=== PATIENT | female | born 1950 | race Caucasian/White ===

== ENCOUNTER 2021-08-08 10:03 | Emergency (ER) | payer MEDICARE ==
[~2021-08-08] VITALS: Ht 152.4 cm; Wt 72.7 kg
[2021-08-08 11:24] LABS: BASOPHILS # (AUTO) 0.1 X10'3 (0-0.2); BASOPHILS % (AUTO) 0.8 % (0-1); EOSINOPHILS % (AUTO) 0.3 % (0-6); HEMATOCRIT 44.5 % (35.0-45.0); HEMOGLOBIN 14.6 g/dl (12.0-16.0); LYMPHOCYTES # (AUTO) 2.3 X10'3 (1.1-4.8); LYMPHOCYTES % (AUTO) 20.5 % (21-51); MEAN CORPUSCULAR HEMOGLOBIN 29.9 PG (27.0-31.0); MEAN CORPUSCULAR HGB CONC 32.7 g/dL (33.0-36.5); MEAN CORPUSCULAR VOLUME 91.2 FL (78-98); MEAN PLATELET VOLUME 8.3 FL (7.4-10.4); MONOCYTES # (AUTO) 1.1 X10'3 (0-0.9); MONOCYTES % (AUTO) 9.6 % (2-12); NEUTROPHILS # (AUTO) 7.5 X10'3 (1.8-7.7); NEUTROPHILS % (AUTO) 68.8 % (42-75); PLATELET COUNT 349 X10'3 (140-440); RED BLOOD COUNT 4.88 X10'6 (4.20-5.60); RED CELL DISTRIBUTION WIDTH 14.5 % (11.5-14.5)
[2021-08-08 11:54] LABS: ALANINE AMINOTRANSFERASE 55 U/L (12-78); ALBUMIN 3.8 G/DL (3.4-5.0); ALBUMIN/GLOBULIN RATIO 0.8 (1.1-1.5); ALKALINE PHOSPHATASE 110 IU/L (46-116); ANION GAP 20 (8-16); ASPARTATE AMINO TRANSFERASE 97 U/L (10-37); BILIRUBIN,TOTAL 0.7 MG/DL (0.1-1.0); BLOOD UREA NITROGEN 14 MG/DL (7-18); BUN/CREATININE RATIO 15.6 (6.6-38.0); CALCIUM 9.4 MG/DL (8.5-10.1); CHLORIDE 106 MMOL/L (99-107); GLUCOSE 90 MG/DL (70-104); POTASSIUM 3.9 MMOL/L (3.5-5.1); SODIUM 142 MMOL/L (135-145); TOTAL CARBON DIOXIDE 15.7 MMOL/L (24-32); TOTAL PROTEIN 8.7 G/DL (6.4-8.2); eGFR 62 ML/MIN
[2021-08-08] MEDS ORDERED: amLODIPine 5mg tablet PO ONE (12:30)
[2021-08-08] MEDS ORDERED: losartan 50mg tablet PO SCH (12:30)
[2021-08-08] MEDS: losartan 25mg tablet PO SCH ×2 (12:53→12:54)
[2021-08-08] MEDS ORDERED: ringers solution, lactated 1000ml IV soln IV ONE ×2 (14:50→16:25)
[2021-08-08] MEDS ORDERED: AMOX-422 PO (15:28)
[2021-08-08] MEDS ORDERED: LORazepam 2 mg/ml vial IV ONE (17:25)
[2021-08-08] MEDS ORDERED: ondansetron/PF 4mg/2ml inj IV ONE (17:25)
[2021-08-08 18:05] LABS: CLARITY,URINE CLOUDY (Clear); COLOR,URINE YELLOW (Yellow); GLUCOSE, URINE NEGATIVE (Neg); KETONES,URINE 15 mg/dl (Neg); LEUKOCYTE ESTERASE ,URINE NEGATIVE (Neg); NITRITES, URINE NEGATIVE (Neg); OCCULT BLOOD,URINE NEGATIVE (Neg); PROTEIN,URINE NEGATIVE (Neg); UA COLLECTION TYPE NON-SPECIFIED; UROBILINOGEN,URINE 0.2 E.U/dL (0.2-1.0)
[2021-08-08 18:16] LABS: BACTERIA,URINE FEW /HPF (Neg); HYALINE CASTS 0-3 /LPF (NEGATIVE); MUCUS STRANDS FEW /LPF (Neg); RBC,URINE 0-2 /HPF (0-2); SQUAMOUS EPITHELIAL CELL,UR MANY /LPF (FEW); WBC,URINE 0-4 /HPF (0-4)
[2021-08-08 18:37] VITALS: BP 138/74
== END 2021-08-08 18:42 | disposition home or self-care (01) ==
LOC: ER 10:04
DX: K57.90 Diverticulosis of intestine, part unspecified, without perforation or abscess without bleeding (principal); K62.5 Hemorrhage of anus and rectum; R11.10 Vomiting, unspecified; I10 Essential (primary) hypertension; Z72.89 Other problems related to lifestyle; Z79.2 Long term (current) use of antibiotics
CPT/HCPCS: 36415; 74176; 80053; 81001; 83605; 84145; 85025; 93005; 96374; 96375; 99285; J2060; J2405; J7120

== ENCOUNTER 2024-10-12 13:05 | Outpatient (CLI) | payer MEDICARE | END 2024-10-12 23:59 | disposition home or self-care (01) | LOC: RAD 13:05 | PROVIDERS: ATTEND Family Medicine | DX: S42.211A Unspecified displaced fracture of surgical neck of right humerus, initial encounter for closed fracture (principal); M25.511 Pain in right shoulder; X58.XXXA Exposure to other specified factors, initial encounter; Y93.89 Activity, other specified; Y92.89 Other specified places as the place of occurrence of the external cause; Y99.8 Other external cause status | CPT/HCPCS: 73030 ==

== ENCOUNTER 2024-10-14 11:04 | Emergency (ER) | payer MEDICARE ==
[~2024-10-14] VITALS: Ht 152.4 cm; Wt 64.5 kg
[2024-10-14 11:15] VITALS: BP 137/75; PULSE 104; O2SAT 97
[2024-10-14] MEDS ORDERED: ONDA-243 PO (12:16)
[2024-10-14] MEDS ORDERED: HYDR-3965 PO (12:16)
[2024-10-14 12:38] VITALS: RESP 16
[2024-10-14] MEDS: ondansetron 4mg rapidly disintigrating tab PO ONE (12:38)
[2024-10-14] MEDS: HYDROcodone/acetaminophen 5mg/325mg tablet PO ONE (12:38)
[2024-10-14 12:42] VITALS: TEMP 97.6
== END 2024-10-14 12:44 | disposition home or self-care (01) ==
LOC: ER 11:04
DX: S42.252A Displaced fracture of greater tuberosity of left humerus, initial encounter for closed fracture (principal); I10 Essential (primary) hypertension; W19.XXXA Unspecified fall, initial encounter; Y93.89 Activity, other specified; Y92.89 Other specified places as the place of occurrence of the external cause; Y99.8 Other external cause status
CPT/HCPCS: 73030; 99283

== ENCOUNTER 2024-10-19 10:40 | Emergency (ER) | payer MEDICARE ==
[~2024-10-19] VITALS: Ht 152.4 cm; Wt 64.5 kg
[~2024-10-19 10:40] MED LIST: HYDR-3965 PO; ONDA-243 PO
[2024-10-19 11:24] VITALS: TEMP 97.2
[2024-10-19 13:36] VITALS: BP 132/73; PULSE 92; RESP 16; O2SAT 97
== END 2024-10-19 14:12 | disposition home or self-care (01) ==
LOC: ER 10:41
DX: S42.291D Other displaced fracture of upper end of right humerus, subsequent encounter for fracture with routine healing (principal); I10 Essential (primary) hypertension; F10.90 Alcohol use, unspecified, uncomplicated; Y90.9 Presence of alcohol in blood, level not specified; X58.XXXD Exposure to other specified factors, subsequent encounter
CPT/HCPCS: 99284

== ENCOUNTER 2025-01-08 05:25 | Observation (INO) | payer MEDICARE ==
[2025-01-01 14:25] LABS: BILIRUBIN,URINE NEGATIVE (Neg); CLARITY,URINE CLEAR (Clear); COLOR,URINE YELLOW (Yellow); GLUCOSE, URINE NEGATIVE (Neg); KETONES,URINE NEGATIVE (Neg); LEUKOCYTE ESTERASE ,URINE NEGATIVE (Neg); NITRITES, URINE NEGATIVE (Neg); OCCULT BLOOD,URINE NEGATIVE (Neg); PROTEIN,URINE NEGATIVE (Neg); UROBILINOGEN,URINE 0.2 E.U/dL (0.2-1.0)
[2025-01-01 14:28] LABS: BASOPHILS % (AUTO) 0.6 % (0-1); EOSINOPHILS # (AUTO) 0.1 X10'3 (0-0.9); EOSINOPHILS % (AUTO) 1.7 % (0-6); LYMPHOCYTES # (AUTO) 2.8 X10'3 (1.1-4.8); LYMPHOCYTES % (AUTO) 37.9 % (21-51); MEAN CORPUSCULAR HEMOGLOBIN 28.3 PG (27.0-31.0); MEAN CORPUSCULAR HGB CONC 32.6 g/dL (33.0-36.5); MEAN CORPUSCULAR VOLUME 86.8 FL (78-98); MEAN PLATELET VOLUME 8.5 FL (7.4-10.4); MONOCYTES # (AUTO) 0.7 X10'3 (0-0.9); MONOCYTES % (AUTO) 9.4 % (2-12); NEUTROPHILS # (AUTO) 3.8 X10'3 (1.8-7.7); NEUTROPHILS % (AUTO) 50.4 % (42-75); PRE OP HEMATOCRIT 38.9 % (35.0-45.0); PRE OP HEMOGLOBIN 12.7 g/dL (12.0-16.0); PRE OP PLATELET COUNT 300 X10'3 (140-440); PRE OP WHITE BLOOD COUNT 7.4 10'3 (4.8-10.8); RED BLOOD COUNT 4.48 X10'6 (4.20-5.60); RED CELL DISTRIBUTION WIDTH 13.1 % (11.5-14.5)
[2025-01-01 14:30] LABS: UA COLLECTION TYPE CLN CATCH MIDSTREAM
[2025-01-01 14:40] LABS: PRE OP INR 1.1 INR
[2025-01-01 14:41] LABS: ALBUMIN 3.5 G/DL (3.4-5.0); ALBUMIN/GLOBULIN RATIO 0.8 (1.1-1.5); ALKALINE PHOSPHATASE 99 IU/L (46-116); BLOOD UREA NITROGEN 14 MG/DL (7-18); BUN/CREATININE RATIO 18.7 (10.0-20.0); CALCIUM 10.3 MG/DL (8.5-10.1); CHLORIDE 106 MMOL/L (99-107); CREATININE 0.75 MG/DL (0.40-0.90); PRE OP ALT 19 U/L (30-65); PRE OP ANION GAP 6 (8-16); PRE OP AST 26 U/L (10-37); PRE OP BILIRUB, TOTAL 0.4 MG/DL (0.0-1.0); PRE OP GLUCOSE 109 MG/DL (70-104); PRE OP POTASSIUM 4.2 MMOL/L (3.4-5.1); PRE OP SODIUM 141 MMOL/L (135-145); TOTAL CARBON DIOXIDE 29.4 MMOL/L (24-32); eGFR 75 ML/MIN
[2025-01-01 14:51] LABS: PRE OP PROTIME 11.3 SECONDS (9.0-12.0)
[2025-01-08] VITALS (18 sets, daily range): BP systolic 121–169; BP diastolic 51–89; PULSE 78–119; RESP 13–20; TEMP 96.9–97.8; O2SAT 91–98
[~2025-01-08] VITALS: Ht 152.4 cm; Wt 64.0 kg
[~2025-01-08 05:25] MED LIST changes: +ATOR-2 PO; +CARV3.1244 PO; +HYDR-3964 PO; -HYDR-3965 PO; +LOSA25TA41 PO; -ONDA-243 PO; +PANT40TA54 PO
[2025-01-08] MEDS ORDERED: tranexamic acid 650mg tablet PO ONE (05:30)
[2025-01-08] MEDS: ceFAZolin 2gm in dextrose, iso 50 ML IV ONE (05:41)
[2025-01-08] MEDS: tranexamic acid 1gm/0.7% sal. 100 ML IV ONE (05:46)
[2025-01-08] MEDS: DOCUMENT DATE & TIME OF BETA-BLOCKER PO ONE (06:03)
[2025-01-08] MEDS: ringers solution, lacted 1,000 ML IV SCH ×2 (06:03→11:04)
[2025-01-08] MEDS: famotidine 20mg tablet PO ONE (06:03)
[2025-01-08] MEDS ORDERED: vancomycin 1,000mg inj ONE (06:36)
[2025-01-08] MEDS ORDERED: methylene blue (5mg/ml) 50mg/10ml ampul IV ONE (06:36)
[2025-01-08] MEDS ORDERED: gelatin sponge, absorbable (Gelfoam 100) sponge TP ONE (06:37)
[2025-01-08] MEDS ORDERED: Thrombin (Bovine) 5,000 unit vial TP ONE (06:37)
[2025-01-08] MEDS ORDERED: BUPIVAcaine 0.5% inj/PF 30 ML ONE (07:10)
[2025-01-08] MEDS ORDERED: BUPIVACAINE liposomal/PF 13.3 MG/ML 10mL vial IM ONE (07:11)
[2025-01-08] MEDS ORDERED: midazolam 1 mg/ML 2ml injection ONE (07:13)
[2025-01-08] MEDS ORDERED: fentaNYL /PF 50mcg/ml 5ml ampule ONE (07:14)
[2025-01-08] MEDS ORDERED: LIDOcaine 2% (20mg/ml) 5ml vial ONE (07:14)
[2025-01-08] MEDS ORDERED: propofol inj 20 ML IV ONE (07:14)
[2025-01-08] MEDS ORDERED: ondansetron/PF 4mg/2ml inj ONE (07:14)
[2025-01-08] MEDS ORDERED: succinylcholine 20mg/ml inj IV ONE (07:14)
[2025-01-08] MEDS ORDERED: sevoflurane 250ml liquid IH ONE (07:14)
[2025-01-08] MEDS ORDERED: HYDROcodone/acetaminophen 5mg/325mg tablet PO PRN (07:20)
[2025-01-08] MEDS ORDERED: acetaminophen 325mg tablet PO PRN (07:20)
[2025-01-08] MEDS ORDERED: magnesium hydroxide 30ml (MOM) UD suspension PO PRN (07:20)
[2025-01-08] MEDS ORDERED: naloxone 0.4 mg/ml inj IV PRN (07:20)
[2025-01-08] MEDS ORDERED: bisacodyl 10mg suppository rectal RC PRN (07:20)
[2025-01-08] MEDS ORDERED: diphenhydrAMINE 25mg capsule PO PRN (07:20)
[2025-01-08] MEDS ORDERED: ondansetron/PF 4mg/2ml inj IV PRN ×2 (07:20→08:10)
[2025-01-08] MEDS ORDERED: dexamethasone sod phosphate 4mg/ml inj. ONE (07:39)
[2025-01-08] MEDS ORDERED: acetaminophen 1,000mg/100ml IV 100 ML IV ONE (07:40)
[2025-01-08] MEDS ORDERED: fentaNYL/PF 50MCG/1 ML 2ML syringe IV PRN ×2 (08:10)
[2025-01-08] MEDS ORDERED: morphine 4 MG/ML inj SYRINge IV PRN (08:10)
[2025-01-08] MEDS ORDERED: morphine 2 MG/ML inj. syringe IV PRN (08:10)
[2025-01-08] MEDS ORDERED: hydrALAZINE 20mg/ml inj. IV PRN (08:10)
[2025-01-08] MEDS ORDERED: labetalol 20mg/4ml (5mg/ml) syringe IV PRN (08:10)
[2025-01-08] MEDS: potassium cl 20mEq in 1/2 NS 1,000 ML IV SCH (14:49)
[2025-01-08] MEDS: ceFAZolin 2gm in dextrose, iso 50 ML IV SCH (17:21)
[2025-01-08] MEDS: HYDROcodone/acetaminophen 5mg/325mg tablet PO PRN (21:32)
[2025-01-09 02:00] VITALS: BP 148/90; PULSE 93; RESP 18; TEMP 97.9; O2SAT 96
[2025-01-09 06:00] VITALS: BP 164/89; PULSE 95; RESP 16; TEMP 98.1; O2SAT 95
[2025-01-09 06:21] LABS: HEMOGLOBIN 10.8 g/dl (12.0-16.0); MEAN PLATELET VOLUME 8.5 FL (7.4-10.4)
[2025-01-09 06:27] LABS: BASOPHILS % (AUTO) 0.1 % (0-1); EOSINOPHILS % (AUTO) 0 % (0-6); HEMATOCRIT 33.4 % (35.0-45.0); LYMPHOCYTES # (AUTO) 2.6 X10'3 (1.1-4.8); LYMPHOCYTES % (AUTO) 19.2 % (21-51); MEAN CORPUSCULAR HGB CONC 32.5 g/dL (33.0-36.5); MEAN CORPUSCULAR VOLUME 86.3 FL (78-98); MONOCYTES # (AUTO) 1.9 X10'3 (0-0.9); MONOCYTES % (AUTO) 13.9 % (2-12); NEUTROPHILS # (AUTO) 9.2 X10'3 (1.8-7.7); NEUTROPHILS % (AUTO) 66.8 % (42-75); PLATELET COUNT 253 X10'3 (140-440); RED BLOOD COUNT 3.87 X10'6 (4.20-5.60); RED CELL DISTRIBUTION WIDTH 13.3 % (11.5-14.5); WHITE BLOOD COUNT 13.7 X10'3 (4.5-11.0)
[2025-01-09] MEDS: pantoprazole 40mg Tablet.DR PO SCH (07:38)
[2025-01-09] MEDS: atorvastatin 20mg tablet PO SCH (07:38)
[2025-01-09] MEDS: aspirin 325mg tablet PO SCH (07:38)
[2025-01-09] MEDS: carVEDilol 3.125mg tablet PO SCH (07:43)
[2025-01-09] MEDS: losartan 25mg tablet PO SCH (07:44)
[2025-01-09] MEDS: HYDROcodone/acetaminophen 5mg/325mg tablet PO SCH (08:00)
[2025-01-09 08:10] LABS: ALANINE AMINOTRANSFERASE 22 U/L (12-78); ALBUMIN 3.3 G/DL (3.4-5.0); ALBUMIN/GLOBULIN RATIO 0.8 (1.1-1.5); ALKALINE PHOSPHATASE 77 IU/L (46-116); ANION GAP 10 (8-16); ASPARTATE AMINO TRANSFERASE 25 U/L (10-37); BILIRUBIN,TOTAL 0.3 MG/DL (0.1-1.0); BLOOD UREA NITROGEN 17 MG/DL (7-18); BUN/CREATININE RATIO 18.3 (10.0-20.0); CALCIUM 9.4 MG/DL (8.5-10.1); CHLORIDE 108 MMOL/L (99-107); CREATININE 0.93 MG/DL (0.40-0.90); GLUCOSE 124 MG/DL (70-104); POTASSIUM 4.8 MMOL/L (3.5-5.1); SODIUM 144 MMOL/L (135-145); TOTAL CARBON DIOXIDE 26.2 MMOL/L (24-32); TOTAL PROTEIN 7.4 G/DL (6.4-8.2); eCRCL 38 ML/MIN; eGFR 59 ML/MIN
[2025-01-09 10:00] VITALS: BP 118/70; PULSE 91; RESP 14; TEMP 97.9; O2SAT 94
== END 2025-01-09 13:08 | disposition home or self-care (01) ==
LOC: PAS 05:25 → PACU 07:28 → ORTHO 4S 11:20
PROVIDERS: ADMIT Specialist; ATTEND Specialist
DX: M19.011 Primary osteoarthritis, right shoulder (principal); S42.201S Unspecified fracture of upper end of right humerus, sequela; G89.18 Other acute postprocedural pain; Q78.0 Osteogenesis imperfecta; F06.4 Anxiety disorder due to known physiological condition; E78.5 Hyperlipidemia, unspecified; I10 Essential (primary) hypertension; Z86.2 Personal history of diseases of the blood and blood-forming organs and certain disorders involving the immune mechanism; Z79.899 Other long term (current) drug therapy; X58.XXXS Exposure to other specified factors, sequela
CPT/HCPCS: 23472; 64415; 71046; 73030; 80053; 81003; 82948; 85610; 85730; 86885; 86900; 86901; 96365; 96366; A4565; A4618; A7000; C1776; G0378; J0330; J0666; J0690; J2371; J3480; J3490; J7120; Q9968; 36415; 76000; 85025; 87081; 97162; 97530; A6449; A6455; C1713; J0131; J1100; J2003; J2250; J2405; J2704; J3010; J3370